=== PATIENT | male | born 1990 | race Caucasian/White ===

== ENCOUNTER 2018-05-17 07:22 | Emergency (ER) | payer BC ==
[2018-05-17] MEDS ORDERED: Ondansetron 4 MG/2 ML SDV IVPUSH ONE (07:23)
[2018-05-17] MEDS ORDERED: Sodium Chloride 0.9% 1,000 ML IV ONE (07:23)
--- NOTE | 2018-05-17 07:25 | EDM.PDOC ---
ED HPI GENERAL MEDICAL PROBLEM - General Chief Complaint: Respiratory Problem Stated Complaint: COUGH, NAUSEA, CHILLS THEN HOT, BODY ACHES Time Seen by Provider: 05/17/18 07:24 Source of Information: Reports: Patient - History of Present Illness INITIAL COMMENTS - FREE TEXT/NARRATIVE: HISTORY AND PHYSICAL: History of present illness: [Patient presents with cough and nausea dizziness general myalgias headache sinus pain and pressure increasing over the last week otherwise in no distress he did have a couple episodes of vomiting secondary to dizziness otherwise no chest pain shortness of breath bowel or urine symptoms ] Review of systems: As per history of present illness and below otherwise all systems reviewed and negative. Past medical history: As per history of present illness and as reviewed below otherwise noncontributory. Surgical history: As per history of present illness and as reviewed below otherwise noncontributory. Social history: No reported history of drug or alcohol abuse. Family history: As per history of present illness and as reviewed below otherwise noncontributory. Physical exam: HEENT: Atraumatic, normocephalic, pupils reactive, negative for conjunctival pallor or scleral icterus, mucous membranes moist, throat clear, neck supple, nontender, trachea midline. last tenderness supraorbital sinuses left greater than right bilateral ear effusion left is red and bulging no mastoid tenderness no pain with movement of the auricle Lungs: Clear to auscultation, breath sounds equal bilaterally, chest nontender. Heart: S1S2, regular, negative for clicks, rubs, or JVD. Abdomen: Soft, nondistended, nontender. Negative for masses or hepatosplenomegaly. Negative for costovertebral tenderness. Pelvis: Stable nontender. Genitourinary: Deferred. Rectal: Deferred. Extremities: Atraumatic, negative for cords or calf pain. Neurovascular unremarkable. Neuro: Awake, alert, oriented. Cranial nerves II through XII unremarkable. Cerebellum unremarkable. Motor and sensory unremarkable throughout. Exam nonfocal. Diagnostics: [Influenza/strep Chest 1 view] Therapeutics: [Zofran 4 mg ODT Rocephin 1 g IV Augmentin Zofran ] Impression: [ sinusitis] Definitive disposition and diagnosis as appropriate pending reevaluation and review of above. Headache Pain Score (Numeric/FACES): 6 - Related Data Allergies Allergy/AdvReac Type Severity Reaction Status Date / Time No Known Allergies Allergy Verified 05/17/18 07:32 Home Meds: Home Meds . [No Known Home Meds] 05/17/18 [History] ED ROS GENERAL - Review of Systems Review Of Systems: See Below ED EXAM, GENERAL - Physical Exam Exam: See Below Course - Vital Signs Last Recorded V/S: Last Vital Signs Temp 97.9 F 05/17/18 07:33 Pulse 81 05/17/18 07:33 Resp 16 05/17/18 07:33 BP 121/83 05/17/18 07:33 Pulse Ox 98 05/17/18 07:33 - Orders/Labs/Meds Orders: Active Orders 24 hr Category Date Time Status CULTURE STREP A CONFIRMATION [] Stat Lab 05/17/18 07:30 Results STREP SCRN A RAPID W CULT CONF [RM] Stat Lab 05/17/18 07:30 Results UA RFX LAURIE AND CULT IF INDIC [URIN] Stat Lab 05/17/18 07:23 Ordered cefTRIAXone [Rocephin] Med 05/17/18 08:14 Once 1 gm IM ONETIME ONE Meds: Medications Discontinued Medications Generic Name Dose Route Start Last Admin Trade Name Jake PRN Reason Stop Dose Admin Sodium Chloride 1,000 mls @ 999 mls/hr 05/17/18 07:23 05/17/18 08:10 Normal Saline IV 05/17/18 08:23 Not Given STAT ONE Ondansetron HCl 8 mg 05/17/18 07:23 05/17/18 08:10 Zofran IVPUSH 05/17/18 07:24 Not Given ONETIME ONE Ondansetron HCl 4 mg 05/17/18 08:06 05/17/18 08:10 Zofran Odt PO 05/17/18 08:07 4 mg ONETIME ONE Administration Departure - Departure Time of Disposition: 08:15 (\) Disposition: Home, Self-Care 01 Condition: Good Clinical Impression: Sinusitis - Discharge Information Referrals: PCP,None [Primary Care Provider] - Forms: ED Department Discharge Additional Instructions: The following information is given to patients seen in the emergency department who are being discharged to home. This information is to outline your options for follow-up care. We provide all patients seen in our emergency department with a follow-up referral. The need for follow-up, as well as the timing and circumstances, are variable depending upon the specifics of your emergency department visit. If you don't have a primary care physician on staff, we will provide you with a referral. We always advise you to contact your personal physician following an emergency department visit to inform them of the circumstance of the visit and for follow-up with them and/or the need for any referrals to a consulting specialist. The emergency department will also refer you to a specialist when appropriate. This referral assures that you have the opportunity for follow-up care with a specialist. All of these measure are taken in an effort to provide you with optimal care, which includes your follow-up. Under all circumstances we always encourage you to contact your private physician who remains a resource for coordinating your care. When calling for follow-up care, please make the office aware that this follow-up is from your recent emergency room visit. If for any reason you are refused follow-up, please contact the [facility] emergency department at and asked to speak to the emergency department charge nurse. - My Orders Last 24 Hours: My Active Orders 05/17/18 07:23 UA RFX LAURIE AND CULT IF INDIC [URIN] Stat 05/17/18 07:30 CULTURE STREP A CONFIRMATION [RM] Stat STREP SCRN A RAPID W CULT CONF [RM] Stat 05/17/18 08:14 cefTRIAXone [Rocephin] 1 gm IM ONETIME ONE - Assessment/Plan Last 24 Hours: My Active Orders 05/17/18 07:23 UA RFX LAURIE AND CULT IF INDIC [URIN] Stat 05/17/18 07:30 CULTURE STREP A CONFIRMATION [RM] Stat STREP SCRN A RAPID W CULT CONF [RM] Stat 05/17/18 08:14 cefTRIAXone [Rocephin] 1 gm IM ONETIME ONE
--- NOTE | 2018-05-17 07:58 | CR ---
INDICATION: Pain. Shortness of breath. TECHNIQUE: AP portable chest x-ray. FINDINGS: Lungs clear without infiltrate or consolidation. Mild thoracic scoliosis. Heart size normal. Mild gas distention stomach. Chest otherwise negative without acute disease. Dictated by Coy Boo MD @ May 17 2018 7:55AM Signed by Dr. Coy Boo @ May 17 2018 7:56AM
[2018-05-17] MEDS ORDERED: Ondansetron 4 MG Tab.DIS PO ONE (08:06)
[2018-05-17] MEDS ORDERED: cefTRIAXone 1 GM Vial IM ONE (08:14)
[2018-05-17] MEDS ORDERED: Lidocaine 1% 2 ML ONE (08:20)
== END 2018-05-17 08:45 | disposition home or self-care (01) ==
LOC: MW.ED 07:22
DX: J32.9 Chronic sinusitis, unspecified (principal)
CPT/HCPCS: 71045; 87081; 87804; 87880; 96372; 99283; A9270; J0696; J2001; 99284

== ENCOUNTER 2018-05-20 16:30 | Emergency (ER) | payer BC ==
[2018-05-20] MEDS ORDERED: Ondansetron 4 MG/2 ML SDV IVPUSH ONE (16:42)
[2018-05-20] MEDS ORDERED: Sodium Chloride 0.9% 1,000 ML IV ONE (16:42)
--- NOTE | 2018-05-20 16:44 | EDM.PDOC ---
<Link Ramos - Last Filed: 05/20/18 19:02> ED HPI GENERAL MEDICAL PROBLEM - General Chief Complaint: Gastrointestinal Problem Stated Complaint: DIARRHEA,CHILLS Time Seen by Provider: 05/20/18 16:43 Source of Information: Reports: Patient - History of Present Illness INITIAL COMMENTS - FREE TEXT/NARRATIVE: HISTORY AND PHYSICAL: History of present illness: [Patient presents with history of sinusitis on amoxicillin improvement from lab standpoint presents today with nausea vomiting for a couple of days of low abdominal pain and right lower quadrant Current f nausea vomiting loose stools Review of systems: As per history of present illness and below otherwise all systems reviewed and negative. Past medical history: As per history of present illness and as reviewed below otherwise noncontributory. Surgical history: As per history of present illness and as reviewed below otherwise noncontributory. Social history: No reported history of drug or alcohol abuse. Family history: As per history of present illness and as reviewed below otherwise noncontributory. Physical exam: HEENT: Atraumatic, normocephalic, pupils reactive, negative for conjunctival pallor or scleral icterus, mucous membranes moist, throat clear, neck supple, nontender, trachea midline. Lungs: Clear to auscultation, breath sounds equal bilaterally, chest nontender. Heart: S1S2, regular, negative for clicks, rubs, or JVD. Abdomen: Soft, nondistended, right lower quadrant pain with guarding on deep palpation no rebound tenderness. Negative for masses or hepatosplenomegaly. Negative for costovertebral tenderness. Pelvis: Stable nontender. Genitourinary: Deferred. Rectal: Deferred. Extremities: Atraumatic, negative for cords or calf pain. Neurovascular unremarkable. Neuro: Awake, alert, oriented. Cranial nerves II through XII unremarkable. Cerebellum unremarkable. Motor and sensory unremarkable throughout. Exam nonfocal. Diagnostics: [CBC CMP UA CT abdomen pelvis with contrast ] Therapeutics: [ normal saline Zofran Toradol ] Impression: [ abdominal pain Fever] Definitive disposition and diagnosis as appropriate pending reevaluation and review of above. Generalized Pain Score (Numeric/FACES): 8 - Related Data Allergies Allergy/AdvReac Type Severity Reaction Status Date / Time No Known Allergies Allergy Verified 05/20/18 16:39 Home Meds: Home Meds Non-Formulary Medication [NF Drug] 1 tab PO BID 05/20/18 [History] Ondansetron [Zofran] 1 tab PO ASDIRECTED PRN 05/20/18 [History] Past Medical History - Past Health History Medical/Surgical History: Denies Medical/Surgical History - Infectious Disease History Infectious Disease History: Reports: Chicken Pox Social & Family History - Family History Family Medical History: Noncontributory - Tobacco Use Smoking Status *Q: Never Smoker - Caffeine Use Caffeine Use: Reports: Coffee - Recreational Drug Use Recreational Drug Use: No Course - Vital Signs Last Recorded V/S: Last Vital Signs Temp 38.2 C H 05/20/18 16:36 Pulse 108 H 05/20/18 20:00 Resp 13 05/20/18 20:00 BP 112/57 L 05/20/18 20:00 Pulse Ox 96 05/20/18 20:00 - Orders/Labs/Meds Labs: Laboratory Tests 05/20/18 05/20/18 05/20/18 Range/Units 16:48 16:48 17:50 WBC 7.49 (4.0-11.0) K/uL RBC 5.22 (4.50-5.90) M/uL Hgb 16.4 (13.0-17.0) g/dL Hct 45.1 (38.0-50.0) % MCV 86.4 (80.0-98.0) fL MCH 31.4 (27.0-32.0) pg MCHC 36.4 (31.0-37.0) g/dL RDW Std Deviation 40.6 (28.0-62.0) fl RDW Coeff of Familia 13 (11.0-15.0) % Plt Count 232 (150-400) K/uL MPV 9.70 (7.40-12.00) fL Neut % (Auto) 80.2 H (48.0-80.0) % Lymph % (Auto) 10.9 L (16.0-40.0) % Pitt % (Auto) 6.7 (0.0-15.0) % Eos % (Auto) 1.9 (0.0-7.0) % Baso % (Auto) 0.3 (0.0-1.5) % Neut # (Auto) 6.0 H (1.4-5.7) K/uL Lymph # (Auto) 0.8 (0.6-2.4) K/uL Pitt # (Auto) 0.5 (0.0-0.8) K/uL Eos # (Auto) 0.1 (0.0-0.7) K/uL Baso # (Auto) 0.0 (0.0-0.1) K/uL Nucleated RBC % 0.0 /100WBC Nucleated RBCs # 0 K/uL Sodium 140 (136-148) mmol/L Potassium 4.5 (3.5-5.1) mmol/L Chloride 103 (98-107) mmol/L Carbon Dioxide 26.5 (21.0-32.0) mmol/L BUN 15 (7.0-18.0) mg/dL Creatinine 1.3 (0.8-1.3) mg/dL Est Cr Clr Drug Dosing 81.85 mL/min Estimated GFR (MDRD) > 60.0 ml/min Glucose 108 H (74-106) mg/dL Calcium 9.4 (8.5-10.1) mg/dL Total Bilirubin 0.4 (0.2-1.0) mg/dL AST 25 (15-37) IU/L ALT 42 (14-63) IU/L Alkaline Phosphatase 143 H (46-116) U/L Total Protein 8.4 H (6.4-8.2) g/dL Albumin 4.2 (3.4-5.0) g/dL Globulin 4.2 H (2.6-4.0) g/dL Albumin/Globulin Ratio 1.0 (0.9-1.6) Lipase 144 (73-393) U/L Urine Color YELLOW Urine Appearance CLEAR Urine pH 6.5 (5.0-8.0) Ur Specific [place] 1.010 (1.001-1.035) Urine Protein NEGATIVE (NEGATIVE) mg/dL Urine Glucose (UA) NEGATIVE (NEGATIVE) mg/dL Urine Ketones NEGATIVE (NEGATIVE) mg/dL Urine Occult Blood NEGATIVE (NEGATIVE) Urine Nitrite NEGATIVE (NEGATIVE) Urine Bilirubin NEGATIVE (NEGATIVE) Urine Urobilinogen 0.2 (<2.0) EU/dL Ur Leukocyte Esterase NEGATIVE (NEGATIVE) Meds: Medications Discontinued Medications Generic Name Dose Route Start Last Admin Trade Name Freq PRN Reason Stop Dose Admin Sodium Chloride 1,000 mls @ 999 mls/hr 05/20/18 16:42 05/20/18 16:57 Normal Saline IV 05/20/18 17:42 999 mls/hr STAT ONE Administration Iopamidol 90 ml 05/20/18 18:53 05/20/18 18:54 Isovue Multipack-370 (76%) IVPUSH 05/20/18 18:54 90 ml ONETIME STA Administration Ketorolac Tromethamine 30 mg 05/20/18 17:35 05/20/18 17:47 Toradol IVPUSH 05/20/18 17:36 30 mg ONETIME ONE Administration Ondansetron HCl 8 mg 05/20/18 16:42 05/20/18 16:57 Zofran IVPUSH 05/20/18 16:43 8 mg ONETIME ONE Administration Departure - Departure Disposition: Home, Self-Care 01 Clinical Impression: Abdominal pain, Gastroenteritis - Discharge Information Referrals: PCP,Unknown [Primary Care Provider] - Forms: ED Department Discharge Additional Instructions: The following information is given to patients seen in the emergency department who are being discharged to home. This information is to outline your options for follow-up care. We provide all patients seen in our emergency department with a follow-up referral. The need for follow-up, as well as the timing and circumstances, are variable depending upon the specifics of your emergency department visit. If you don't have a primary care physician on staff, we will provide you with a referral. We always advise you to contact your personal physician following an emergency department visit to inform them of the circumstance of the visit and for follow-up with them and/or the need for any referrals to a consulting specialist. The emergency department will also refer you to a specialist when appropriate. This referral assures that you have the opportunity for followup care with a specialist. All of these measure are taken in an effort to provide you with optimal care, which includes your followup. Under all circumstances we always encourage you to contact your private physician who remains a resource for coordinating your care. When calling for followup care, please make the office aware that this follow-up is from your recent emergency room visit. If for any reason you are refused follow-up, please contact the [facility] emergency department at and asked to speak to the emergency department charge nurse. Follow-up primary medical doctor as needed as discussed return as needed as discussed <Quan Costello - Last Filed: 05/20/18 20:17> ED ROS GENERAL - Review of Systems Review Of Systems: ROS reveals no pertinent complaints other than HPI. ED EXAM, GENERAL - Physical Exam Exam: See Below (See dictation) Course - Vital Signs Text/Narrative:: Emergency department course unremarkable CT was negative for appendicitis or other acute processes. Departure - Departure Time of Disposition: 20:16 Condition: Good
[2018-05-20] MEDS ORDERED: Ketorolac 30 MG/ML SDV IVPUSH ONE (17:35)
[2018-05-20 17:43] LABS: CHLORIDE,CL 103 mmol/L (98-107); SODIUM,NA 140 mmol/L (136-148)
--- NOTE | 2018-05-20 18:38 | CR ---
Indication: Abdominal pain. Technique: AP supine and upright views of the abdomen and pelvis were obtained. Comparison: None Findings: The bowel gas pattern is nonobstructive. No free air is identified. Only minimal amount of stool is identified. No pathologic calcifications are identified. Impression: Nonobstructive bowel gas pattern with no free air. Dictated by Kathie Gaitan MD @ May 20 2018 6:34PM Signed by Dr. Kathie Gaitan @ May 20 2018 6:35PM
[2018-05-20] MEDS ORDERED: Iopamidol 755 MG/ML 500 ML Multipack Bottle IVPUSH STA (18:53)
--- NOTE | 2018-05-20 19:24 | CT ---
INDICATION: Abdominal pain; diarrhea; chills. COMPARISON: Abdominal radiographs May 20, 2018; chest radiograph May 17, 2018. TECHNIQUE: CT abdomen and pelvis with intravenous contrast; coronal and sagittal reformats. FINDINGS: No abnormal intra pulmonary nodular densities through the lung bases. No evidence of pleural effusion. Normal size cardiac silhouette without any evidence of pericardial effusion. No focal hepatic or splenic pathology. No pancreatic pathology. Gallbladder is unremarkable. No adrenal pathology. No kidney stones or obstructive uropathy. No retroperitoneal lymphadenopathy. No evidence of abdominal or pelvic ascites. CT study of the pelvis is unremarkable. The appendix is unremarkable. No pneumoperitoneum or intestinal obstruction. Splenic vein, superior mesenteric vein and the portal vein are unremarkable. IMPRESSION: Negative CT abdomen and pelvis with intravenous contrast. Please note that all CT scans at this facility use dose modulation, iterative reconstruction, and/or weight-based dosing when appropriate to reduce radiation dose to as low as reasonably achievable. Dictated by Jorge A Samayoa MD @ May 20 2018 7:19PM Signed by Dr. Jorge A Samayoa @ May 20 2018 7:23PM
== END 2018-05-20 20:25 | disposition home or self-care (01) ==
LOC: MW.ED 16:30
DX: K52.9 Noninfective gastroenteritis and colitis, unspecified (principal); Z79.899 Other long term (current) drug therapy
CPT/HCPCS: 36415; 74019; 74177; 80053; 81003; 83690; 85025; 87804; 96361; 96374; 96375; 99284; J1885; J2405; J7040; Q9967

== ENCOUNTER 2020-04-14 13:48 | Emergency (ER) | payer BC, MEDICAID ==
--- NOTE | 2020-04-14 13:51 | EDM.PDOC ---
ED HPI GENERAL MEDICAL PROBLEM - General Chief Complaint: Laceration Stated Complaint: NAIL WENT IN HAND Time Seen by Provider: 04/14/20 13:49 Source of Information: Reports: Patient History Limitations: Reports: No Limitations - History of Present Illness INITIAL COMMENTS - FREE TEXT/NARRATIVE: 29-year-old male tetanus status not up-to-date presents for puncture wound to hand. Patient works as a warehouse general laborer and accidentally hit his hand up against an exposed nail. Bleeding stopped prior to arrival. No other injuries reported. L hand Pain Score (Numeric/FACES): 4 - Related Data Allergies Allergy/AdvReac Type Severity Reaction Status Date / Time No Known Allergies Allergy Verified 04/14/20 14:06 Home Meds: Home Meds Amoxicillin/Potassium Clav [Augmentin 875-125 Tablet] 1 each PO BID 7 Days #14 tablet 04/14/20 [Rx] Past Medical History - Past Health History Medical/Surgical History: Denies Medical/Surgical History - Infectious Disease History Infectious Disease History: Reports: Chicken Pox Social & Family History - Family History Family Medical History: No Pertinent Family History - Caffeine Use Caffeine Use: Reports: Coffee ED ROS GENERAL - Review of Systems Review Of Systems: Comprehensive ROS is negative, except as noted in HPI. ED EXAM, SKIN/RASH Exam: See Below Exam Limited By: No Limitations General Appearance: Alert, WD/WN, No Apparent Distress Throat/Mouth: Normal Voice, No Airway Compromise Head: Atraumatic, Normocephalic Respiratory/Chest: No Respiratory Distress, No Accessory Muscle Use Cardiovascular: Normal Peripheral Pulses Extremities: Other (Small puncture wound without active bleeding to left palmar hand, normal form setter/driver strength and range of motion of all digits, normal radial pulse) Neurological: Alert, Normal Gait Psychiatric: Normal Affect, Normal Mood Skin: Warm, Dry, Intact, Normal Color Course - Vital Signs Last Recorded V/S: Last Vital Signs Temp 97.3 F 04/14/20 13:56 Pulse 82 04/14/20 13:56 Resp 17 04/14/20 13:56 BP 118/71 04/14/20 13:56 Pulse Ox 97 04/14/20 13:56 - Orders/Labs/Meds Orders: Active Orders 24 hr Category Date Time Status Vaccines to be Administered [RC] PER UNIT ROUTINE Care 04/14/20 13:54 Active Octyl 2-Cyanoacrylate [Dermabond Mini] Med 04/14/20 14:30 Once 1 applic TOP ONETIME ONE Medication Orders Octyl Cyanoacrylate (Dermabond Mini) 1 applic TOP ONETIME ONE Stop: 04/14/20 14:31 Meds: Medications Generic Name Dose Route Start Last Admin Trade Name Freq PRN Reason Stop Dose Admin Octyl Cyanoacrylate 1 applic 04/14/20 14:30 Dermabond Mini TOP 04/14/20 14:31 ONETIME ONE Discontinued Medications Generic Name Dose Route Start Last Admin Trade Name Freq PRN Reason Stop Dose Admin Diphtheria/Tetanus/Acell Pertussis 0.5 ml 04/14/20 13:54 04/14/20 13:58 Boostrix IM 04/14/20 13:55 0.5 ml .ONCE ONE Administration - Re-Assessments/Exams Free Text/Narrative Re-Assessment/Exam: 04/14/20 14:33 We will Dermabond small puncture wound. Wound was cleaned out by nursing. No suspicion for foreign body given mechanism. Tetanus status addressed. Will send patient home with prophylactic Augmentin. Departure - Departure Time of Disposition: 14:31 Disposition: Home, Self-Care 01 Condition: Good Clinical Impression: Puncture wound - Discharge Information Prescriptions: Amoxicillin/Potassium Clav [Augmentin 875-125 Tablet] 1 each PO BID 7 Days #14 tablet Instructions: Puncture Wound Forms: ED Department Discharge Additional Instructions: The following information is given to patients seen in the emergency department who are being discharged to home. This information is to outline your options for follow-up care. We provide all patients seen in our emergency department with a follow-up referral. The need for follow-up, as well as the timing and circumstances, are variable depending upon the specifics of your emergency department visit. If you don't have a primary care physician on staff, we will provide you with a referral. We always advise you to contact your personal physician following an emergency department visit to inform them of the circumstance of the visit and for follow-up with them and/or the need for any referrals to a consulting specialist. The emergency department will also refer you to a specialist when appropriate. This referral assures that you have the opportunity for follow-up care with a specialist. All of these measure are taken in an effort to provide you with optimal care, which includes your follow-up. Under all circumstances we always encourage you to contact your private physician who remains a resource for coordinating your care. When calling for follow-up care, please make the office aware that this follow-up is from your recent emergency room visit. If for any reason you are refused follow-up, please contact the [facility] Emergency Department at and asked to speak to the emergency department charge nurse. Please follow up with your primary care physician. If you do not have a primary care physician, see below: [facility] [address], [place] [id number] [facility] [address] [place] [address] [facility] [address], [place] [address] Sepsis Event Note (ED) - Focused Exam Vital Signs: Vital Signs Temp Pulse Resp BP Pulse Ox 04/14/20 13:56 97.3 F 82 17 118/71 97 - My Orders Last 24 Hours: My Active Orders 04/14/20 13:54 Vaccines to be Administered [RC] PER UNIT ROUTINE 04/14/20 14:30 Octyl 2-Cyanoacrylate [Dermabond Mini] 1 applic TOP ONETIME ONE - Assessment/Plan Last 24 Hours: My Active Orders 04/14/20 13:54 Vaccines to be Administered [RC] PER UNIT ROUTINE 04/14/20 14:30 Octyl 2-Cyanoacrylate [Dermabond Mini] 1 applic TOP ONETIME ONE
[2020-04-14] MEDS ORDERED: Diphtheria,Pertussis(Acell),Tetanus Vaccine 0.5 ML Syringe IM ONE (13:54)
[2020-04-14] MEDS ORDERED: Octyl 2-Cyanoacrylate 1 APPLIC TUBE TOP ONE (14:30)
== END 2020-04-14 14:41 | disposition home or self-care (01) ==
LOC: MW.ED 13:48
DX: S61.432A Puncture wound without foreign body of left hand, initial encounter (principal); Z23 Encounter for immunization; W45.0XXA Nail entering through skin, initial encounter
CPT/HCPCS: 90471; 90715; 99283; A9270

== ENCOUNTER 2020-05-15 21:21 | Emergency (ER) | payer MEDICAID ==
--- NOTE | 2020-05-15 21:26 | EDM.PDOC ---
<Alma Ragsdale - Last Filed: 05/15/20 22:06> ED HPI GENERAL MEDICAL PROBLEM - General Chief Complaint: Gastrointestinal Problem Stated Complaint: VOMITING/DIARREA Time Seen by Provider: 05/15/20 21:22 Source of Information: Reports: Patient History Limitations: Reports: No Limitations - History of Present Illness INITIAL COMMENTS - FREE TEXT/NARRATIVE: HISTORY AND PHYSICAL: History of present illness: The patient is a 29-year-old male who presents to the urgency room with complaints of vomiting this evening and an episode of explosive diarrhea. He states that he has a sore throat, headache, lower back pain and abdominal pain. Up until a few hours ago he felt well. Last meal was at noon. He has a sick contact of his son, who has similar symptoms which started Friday. Patient denies any fever, change in vision, syncope or near syncope. Denies any chest pain, shortness of breath or cough. Denies any nausea, vomiting, diarrhea, constipation or dysuria. Has not noted any blood in urine or stool. Review of systems: As per history of present illness and below otherwise all systems reviewed and negative. Past medical history: As per history of present illness and as reviewed below otherwise noncontributory. Surgical history: As per history of present illness and as reviewed below otherwise noncontributory. Social history: See social history for further information Family history: As per history of present illness and as reviewed below otherwise noncontributory. Physical exam: General: Well developed and well nourished. Alert and orientated x 3. Nontoxic in appearance and in no acute distress. Vital signs are stable and have been reviewed by me. Nursing notes were reviewed. HEENT: Atraumatic, normocephalic, pupils equal and reactive bilaterally, negative for conjunctival pallor or scleral icterus, mucous membranes moist, TMs normal bilaterally, throat clear, neck supple, nontender, trachea midline. No drooling or trismus noted. No meningeal signs. No hot potato voice noted. Lungs: Clear to auscultation bilaterally. No wheezes, rales, or rhonchi. Chest nontender. Normal work of breathing, no accessory muscles used. Heart: S1S2, regular rate and rhythm without overt murmur, gallops, or rubs. No JVD. No peripheral edema Abdomen: Soft, nondistended, nontender. Normoactive bowel sounds. Negative for masses or costovertebral tenderness. Skin: Intact, warm, dry. No lesions or rashes noted. Hematologic: No petechiae or purpra. Mucosa appropriate color and normal nail bed color and refill. Extremities: Atraumatic, moves all extremities per self without difficulty or deficits, negative for cords or calf pain. Neurovascular unremarkable. Neuro: Awake, alert, oriented. Cranial nerves II through XII unremarkable. Cerebellum unremarkable. Motor and sensory unremarkable throughout. Exam nonfocal. Psychiatric: Mood and affect are appropriate. Normal thought process. Answering questions appropriately. Notes: *This patient was seen and evaluated during the 2019 SARS-CoV-2 novel coronavirus pandemic period. Community viral transmission is ongoing at time of this encounter and the emergency department is operating under pandemic response procedures. Best exam and findings with the patient and he is agreeable to blood work and a stress test. Give patient Zofran. Report given to Dr. Bauman, who will assume care. I have talked with the patient about today's findings, in addition to providing specific details for plan of care. Reassessment at the time of disposition demonstrates that the patient is in no acute distress. The patient is stable for discharge, counseling was provided and we discussed in great detail signs and symptoms that would prompt them to return to the Emergency Department. Medication, follow up and supportive care measures were reviewed and discussed. Voices understanding and is agreeable to plan of care. Denies any further questions or concerns at this time. Diagnostics: CBC, CMP, strep Therapeutics: Zofran, IV fluids Prescription: Impression: Plan: 1. You were evaluated today on an emergent basis. Your 2. You can alternate Tylenol and ibuprofen as needed for pain and fever management. 3. We encourage you to follow up with your primary care provider and/or recommended specialist in the next few days for re-evaluation and further care/management. 4. If your symptoms should worsen, new symptoms develop or any of the signs and symptoms we discussed should arise please return to the emergency room or call 911 (if needed). Definitive disposition and diagnosis as appropriate pending reevaluation and review of above. headache Pain Score (Numeric/FACES): 3 - Related Data Allergies Allergy/AdvReac Type Severity Reaction Status Date / Time No Known Allergies Allergy Verified 05/15/20 21:42 Home Meds: Home Meds Ondansetron [Zofran ODT] 4 mg PO Q6H PRN #12 tab.dis 05/16/20 [Rx] Past Medical History - Past Health History Medical/Surgical History: Denies Medical/Surgical History HEENT History: Reports: Impaired Vision, Other (See Below) Other HEENT History: wears glasses - Infectious Disease History Infectious Disease History: Reports: Chicken Pox - Past Surgical History HEENT Surgical History: Reports: None Social & Family History - Family History Family Medical History: No Pertinent Family History - Caffeine Use Caffeine Use: Reports: Coffee, Energy Drinks, Soda ED ROS GENERAL - Review of Systems Review Of Systems: Comprehensive ROS is negative, except as noted in HPI. ED EXAM, GI/ABD - Physical Exam Exam: See Below (See dictation) Departure - Departure Disposition: Home, Self-Care 01 Clinical Impression: Gastroenteritis, Dehydration - Discharge Information Instructions: Dehydration, Adult, [id number], Viral Gastroenteritis, Adult, [id number] Referrals: Araseli Elias MD [Primary Care Provider] - Forms: ED Department Discharge Additional Instructions: You have been seen and evaluated in the ER today secondary to signs and symptoms consistent with a gastroenteritis. Upon arrival to the ED, he did seem slightly dehydrated. He was given 1 L of normal saline to assist with hydration. All your blood tests have been within normal limits. Your strep screen was ne gative. Please continue to drink plenty of fluids and eat a bland diet. You will be given a prescription for Zofran to assist you with your symptoms. The following information is given to patients seen in the emergency department who are being discharged to home. This information is to outline your options for follow-up care. We provide all patients seen in our emergency department with a follow-up referral. The need for follow-up, as well as the timing and circumstances, are variable depending upon the specifics of your emergency department visit. If you don't have a primary care physician on staff, we will provide you with a referral. We always advise you to contact your personal physician following an emergency department visit to inform them of the circumstance of the visit and for follow-up with them and/or the need for any referrals to a consulting specialist. The emergency department will also refer you to a specialist when appropriate. This referral assures that you have the opportunity for follow-up care with a specialist. All of these measure are taken in an effort to provide you with optimal care, which includes your follow-up. Under all circumstances we always encourage you to contact your private physician who remains a resource for coordinating your care. When calling for follow-up care, please make the office aware that this follow-up is from your recent emergency room visit. If for any reason you are refused follow-up, please contact the [facility] Emergency Department at and asked to speak to the emergency department charge nurse. [facility] [address] [place] [id number] [address] <Zackary Bauman - Last Filed: 05/16/20 00:16> ED HPI GENERAL MEDICAL PROBLEM - History of Present Illness INITIAL COMMENTS - FREE TEXT/NARRATIVE: Patient was seen and evaluated by me. Patient's labs are all within normal li mits. Patient's strep screen was negative. 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 We will obtain a Covid test on the patient and if negative patient will be stable to discharged home. Patient has been tolerating p.o. solids and liquids here in the ED after Zofran. Patient has also been given 1 L of normal saline and reports that he feels much improved. Abd: Soft, nondistended, no rebound/guarding, no psoas or obturator signs, no tenderness at Mcberney's point, no Clarke's sign. Pt does not present with an exam that would be consistent with an acute surgical abdomen at this time, nontender to palpation. Reassessment at the time of disposition demonstrates that the patient is in no acute distress. The patient has remained stable throughout the entire ED visit and is without objective evidence for acute process requiring urgent intervention or hospitalization. The patient is stable for discharge, counseling is provided as documented above, discussed symptomatic treatment and specific conditions for return. I have spoken with the patient/caregiver and discussed todays findings, in addition to providing specific details for the plan of care. Questions are answered and there is agreement with the plan. Course - Vital Signs Last Recorded V/S: Last Vital Signs Temp 97.5 F 05/15/20 21:35 Pulse 93 05/16/20 00:11 Resp 18 05/15/20 21:35 BP 138/105 H 05/15/20 22:10 Pulse Ox 97 05/16/20 00:11 - Orders/Labs/Meds Orders: Active Orders 24 hr Category Date Time Status COVID-19/FLU A+B [MOLEC] Stat Lab 05/15/20 23:20 Received Sodium Chloride 0.9% [Saline Flush] Med 05/15/20 22:04 Active 10 ml FLUSH ASDIRECTED PRN Sodium Chloride 0.9% [Saline Flush] Med 05/15/20 22:04 Active 2.5 ml FLUSH ASDIRECTED PRN Saline Lock Insert [OM.PC] Stat Oth 05/15/20 22:04 Ordered Medication Orders Sodium Chloride (Sodium Chloride 0.9% 10 Ml Syringe) 10 ml FLUSH ASDIRECTED PRN PRN Reason: Keep Vein Open Last Admin: 05/15/20 22:24 Dose: 10 ml Documented by: SOCRATES Sodium Chloride (Sodium Chloride 0.9% 2.5 Ml Syringe) 2.5 ml FLUSH ASDIRECTED PRN PRN Reason: Keep Vein Open Last Admin: 05/15/20 22:24 Dose: 2.5 ml Documented by: SOCRATES Labs: Laboratory Tests 05/15/20 05/15/20 05/15/20 Range/Units 22:24 22:24 22:38 WBC 13.31 H (4.0-11.0) K/uL RBC 5.38 (4.50-5.90) M/uL Hgb 17.1 H (13.0-17.0) g/dL Hct 47.0 (38.0-50.0) % MCV 87.4 (80.0-98.0) fL MCH 31.8 (27.0-32.0) pg MCHC 36.4 (31.0-37.0) g/dL RDW Std Deviation 39.3 (28.0-62.0) fl RDW Coeff of Familia 12 (11.0-15.0) % Plt Count 207 (150-400) K/uL MPV 10.20 (7.40-12.00) fL Neut % (Auto) 90.4 H (48.0-80.0) % Lymph % (Auto) 5.3 L (16.0-40.0) % [place] % (Auto) 3.6 (0.0-15.0) % Eos % (Auto) 0.5 (0.0-7.0) % Baso % (Auto) 0.2 (0.0-1.5) % Neut # (Auto) 12.0 H (1.4-5.7) K/uL Lymph # (Auto) 0.7 (0.6-2.4) K/uL [place] # (Auto) 0.5 (0.0-0.8) K/uL Eos # (Auto) 0.1 (0.0-0.7) K/uL Baso # (Auto) 0.0 (0.0-0.1) K/uL Nucleated RBC % 0.0 /100WBC Nucleated RBCs # 0 K/uL Sodium 141 (136-148) mmol/L Potassium 3.9 (3.5-5.1) mmol/L Chloride 103 (98-107) mmol/L Carbon Dioxide 25.5 (21.0-32.0) mmol/L BUN 17 (7.0-18.0) mg/dL Creatinine 1.1 (0.8-1.3) mg/dL Est Cr Clr Drug Dosing 91.81 mL/min Estimated GFR (MDRD) > 60.0 ml/min Glucose 107 H (74-106) mg/dL Calcium 9.0 (8.5-10.1) mg/dL Total Bilirubin 1.0 (0.2-1.0) mg/dL AST 18 (15-37) IU/L ALT 34 (14-63) IU/L Alkaline Phosphatase 96 (46-116) U/L Total Protein 8.3 H (6.4-8.2) g/dL Albumin 4.4 (3.4-5.0) g/dL Globulin 3.9 (2.6-4.0) g/dL Albumin/Globulin Ratio 1.1 (0.9-1.6) Group A Strep (PCR) NOT DETECTED (NOT DETECT) Meds: Medications Generic Name Dose Route Start Last Admin Trade Name Jake PRN Reason Stop Dose Admin Sodium Chloride 10 ml 05/15/20 22:04 05/15/20 22:24 Sodium Chloride 0.9% 10 Ml Syringe FLUSH 10 ml ASDIRECTED PRN Administration Keep Vein Open Sodium Chloride 2.5 ml 05/15/20 22:04 05/15/20 22:24 Sodium Chloride 0.9% 2.5 Ml Syringe FLUSH 2.5 ml ASDIRECTED PRN Administration Keep Vein Open Discontinued Medications Generic Name Dose Route Start Last Admin Trade Name Jake PRN Reason Stop Dose Admin Sodium Chloride 1,000 mls @ 999 mls/hr 05/15/20 22:03 05/15/20 22:24 Normal Saline IV 05/15/20 23:03 999 mls/hr .Bolus ONE Administration Ondansetron HCl 4 mg 05/15/20 21:53 05/15/20 22:24 Ondansetron 4 Mg Tab PO 05/15/20 21:54 Not Given ONETIME ONE Ondansetron HCl 4 mg 05/15/20 22:17 05/15/20 22:23 Ondansetron 4 Mg/2 Ml Sdv IVPUSH 05/15/20 22:18 4 mg ONETIME ONE Administration Departure - Departure Time of Disposition: 00:14 Condition: Good Sepsis Event Note (ED) - Focused Exam Vital Signs: Vital Signs Temp Pulse Resp BP Pulse Ox 05/16/20 00:11 93 97 05/15/20 22:10 91 138/105 H 97 05/15/20 21:35 97.5 F 110 H 18 132/93 H 97 - My Orders Last 24 Hours: My Active Orders 05/15/20 23:20 COVID-19/FLU A+B [MOLEC] Stat - Assessment/Plan Last 24 Hours: My Active Orders 05/15/20 23:20 COVID-19/FLU A+B [MOLEC] Stat
[2020-05-15] MEDS ORDERED: Ondansetron 4 MG Tab PO ONE (21:53)
[2020-05-15] MEDS ORDERED: Sodium Chloride 0.9% 1,000 ML IV ONE (22:03)
[2020-05-15] MEDS ORDERED: Sodium Chloride 0.9% 10 ML Syringe FLUSH PRN (22:04)
[2020-05-15] MEDS ORDERED: Sodium Chloride 0.9% 2.5 ML Syringe FLUSH PRN (22:04)
[2020-05-15] MEDS ORDERED: Ondansetron 4 MG/2 ML SDV IVPUSH ONE (22:17)
[2020-05-15 22:50] LABS: BLOOD UREA NITROGEN,BUN 17 mg/dL (7.0-18.0); CARBON DIOXIDE,CO2 25.5 mmol/L (21.0-32.0); CHLORIDE,CL 103 mmol/L (98-107); GLUCOSE RANDOM 107 mg/dL (74-106); POTASSIUM,K 3.9 mmol/L (3.5-5.1); SODIUM,NA 141 mmol/L (136-148)
[2020-05-16 00:10] LABS: CORONAVIRUS COVID-19 NAA NEGATIVE (NEGATIVE); INFLUENZA A NAA NEGATIVE (NEGATIVE); INFLUENZA B NAA NEGATIVE (NEGATIVE)
== END 2020-05-16 00:35 | disposition home or self-care (01) ==
LOC: MW.ED 21:21
DX: K52.9 Noninfective gastroenteritis and colitis, unspecified (principal); E86.0 Dehydration; Z20.822 Contact with and (suspected) exposure to COVID-19
CPT/HCPCS: 0240U; 36415; 80053; 85025; 87651; 96374; 99284; J2405; J7030; 99283

== ENCOUNTER 2020-06-01 12:36 | Emergency (ER) | payer MEDICAID ==
--- NOTE | 2020-06-01 12:41 | EDM.PDOC ---
ED HPI GENERAL MEDICAL PROBLEM - General Chief Complaint: Upper Extremity Injury/Pain Stated Complaint: NAIL IN LFT THUMB Time Seen by Provider: 06/01/20 12:39 Source of Information: Reports: Patient History Limitations: Reports: No Limitations - History of Present Illness INITIAL COMMENTS - FREE TEXT/NARRATIVE: 29-year-old male no past medical history presents for nail and finger. Patient was using a nail gun and accidentally stuck a nail through his left thumb. Denies any other injuries. Tetanus vaccination is up-to-date. Left thumb Pain Score (Numeric/FACES): 2 - Related Data Allergies Allergy/AdvReac Type Severity Reaction Status Date / Time No Known Allergies Allergy Verified 06/01/20 12:50 Home Meds: Home Meds cephALEXin [Keflex] 500 mg PO Q8H 7 Days #21 cap 06/01/20 [Rx] Past Medical History - Past Health History Medical/Surgical History: Denies Medical/Surgical History HEENT History: Reports: Impaired Vision, Other (See Below) Other HEENT History: wears glasses Cardiovascular History: Reports: None Respiratory History: Reports: None Gastrointestinal History: Reports: None Genitourinary History: Reports: None Musculoskeletal History: Reports: None Neurological History: Reports: None Psychiatric History: Reports: None Endocrine/Metabolic History: Reports: None Insulin Pump Model and Credit Administration Officer: None Hematologic History: Reports: None Immunologic History: Reports: None Oncologic (Cancer) History: Reports: None Dermatologic History: Reports: None - Infectious Disease History Infectious Disease History: Reports: Chicken Pox - Past Surgical History Head Surgeries/Procedures: Reports: None HEENT Surgical History: Reports: None Cardiovascular Surgical History: Reports: None Social & Family History - Family History Family Medical History: No Pertinent Family History - Caffeine Use Caffeine Use: Reports: Coffee Review of Systems - Review of Systems Review Of Systems: Comprehensive ROS is negative, except as noted in HPI. ED EXAM, GENERAL - Physical Exam Exam: See Below Exam Limited By: No Limitations General Appearance: Alert, WD/WN, No Apparent Distress Ears: Hearing Grossly Normal Throat/Mouth: Normal Voice, No Airway Compromise Head: Atraumatic, Normocephalic Respiratory/Chest: No Respiratory Distress, Lungs Clear, Normal Breath Sounds, No Accessory Muscle Use Cardiovascular: Normal Peripheral Pulses, Regular Rate, Rhythm Extremities: Normal Inspection, Other (roughly 7cm nail through nailbed of L thumb through and through ) Neurological: Alert, Normal Cognition, Normal Gait Psychiatric: Normal Affect, Normal Mood Skin Exam: Warm, Dry, Intact, Normal Color ED TRAUMA EXTREMITY PROCEDURES - Additional/Other Procedure(s) Other (Free Text) Procedure(s): Patient presented with a nail through his left thumb. X-ray imaging did not show any fracture or bony involvement. After consultation with hand surgery, I did a digital block utilizing 1% lidocaine roughly 7 mL on the left thumb. After adequate analgesia was verified utilizing pliers the nail was removed from the finger. The wound was irrigated with a copious amount of saline using pressure. Bleeding was well controlled and blood loss was minimal. A repeat x- ray will be performed to check for any bony involvement. Course - Vital Signs Last Recorded V/S: Last Vital Signs Temp 97.6 F 06/01/20 12:50 Pulse 78 06/01/20 12:50 Resp 17 06/01/20 12:50 BP 136/79 06/01/20 12:50 Pulse Ox 98 06/01/20 12:50 - Orders/Labs/Meds Meds: Medications Discontinued Medications Generic Name Dose Route Start Last Admin Trade Name Jake PRN Reason Stop Dose Admin Lidocaine HCl 20 ml 06/01/20 13:34 06/01/20 13:41 Lidocaine 1% 20 Ml Mdv INJECT 06/01/20 13:35 Not Given ONETIME ONE Lidocaine HCl 20 ml 06/01/20 13:36 06/01/20 13:41 Lidocaine 1% 5 Ml Sdv INJECT 06/01/20 13:37 20 ml ONETIME ONE Administration - Re-Assessments/Exams Free Text/Narrative Re-Assessment/Exam: 06/01/20 13:33 X-ray imaging does not reveal definite fracture. Just nail protected obliquely over the base of the first distal phalanx on all the views. I spoke with Dr. Parra at [facility], hand surgeon, and he recommends digital block to the finger and pulling the nail out. He does not recommend suturing the open wound but does recommend antibiotics to go home on. He agrees to follow-up with the patient if necessary but notes that if there is no fracture patient is likely okay to follow-up with his primary care physician. 06/01/20 14:42 Small fracture in distal left phalanx of 1st digit. Will place in a finger splint and discharged with antibiotics and primary care physician follow-up. Departure - Departure Time of Disposition: 14:43 Disposition: Home, Self-Care 01 Condition: Good Clinical Impression: Foreign body hand Qualifiers: Encounter type: initial encounter Laterality: left Qualified Code(s): S60.552A - Superficial foreign body of left hand, initial encounter Phalanx, distal fracture of finger Qualifiers: Encounter type: initial encounter Finger: thumb Fracture type: closed Fracture alignment: nondisplaced Laterality: left Qualified Code(s): S62.525A - Nondisplaced fracture of distal phalanx of left thumb, initial encounter for closed fracture - Discharge Information Prescriptions: cephALEXin [Keflex] 500 mg PO Q8H 7 Days #21 cap Instructions: Hand or Foot Foreign Body, Adult, Finger Fracture, Adult Referrals: Araseli Elias MD [Primary Care Provider] - Forms: ED Department Discharge Additional Instructions: The following information is given to patients seen in the emergency department who are being discharged to home. This information is to outline your options for follow-up care. We provide all patients seen in our emergency department with a follow-up referral. The need for follow-up, as well as the timing and circumstances, are variable depending upon the specifics of your emergency department visit. If you don't have a primary care physician on staff, we will provide you with a referral. We always advise you to contact your personal physician following an emergency department visit to inform them of the circumstance of the visit and for follow-up with them and/or the need for any referrals to a consulting specialist. The emergency department will also refer you to a specialist when appropriate. This referral assures that you have the opportunity for follow-up care with a specialist. All of these measure are taken in an effort to provide you with optimal care, which includes your follow-up. Under all circumstances we always encourage you to contact your private physician who remains a resource for coordinating your care. When calling for follow-up care, please make the office aware that this follow-up is from your recent emergency room visit. If for any reason you are refused follow-up, please contact the [facility] Emergency Department at and asked to speak to the emergency department charge nurse. Please follow up with your primary care physician. If you do not have a primary care physician, see below: [facility] [address] [place] [id number] [facility] [address] [place] [address] [facility] [address], [place] [address] Sepsis Event Note (ED) - Focused Exam Vital Signs: Vital Signs Temp Pulse Resp BP Pulse Ox 06/01/20 12:50 97.6 F 78 17 136/79 98
--- NOTE | 2020-06-01 13:27 | CR ---
Indication: Nail through the thumb. Technique: Left hand 4 views. Comparison: None. Findings: There is a nail projected obliquely over the base of the 1st distal phalanx on all views. No definite fracture identified. Probable small benign bone island in the distal radius. Joint spaces are well preserved. No soft tissue gas. Impression: There is a nail projected obliquely over the base of the 1st distal phalanx on all views. No definite fracture identified. Dictated by Stacey Caballero MD @ Jun 01 2020 1:23PM Signed by Dr. Stacey Caballero @ Jun 01 2020 1:27PM
[2020-06-01] MEDS ORDERED: Lidocaine 1% 20 ML MDV INJECT ONE (13:34)
--- NOTE | 2020-06-01 14:41 | CR ---
Indication: Nail removal Comparison: Two-views left 1st digit June 01, 2020 Technique: AP, Lateral, and Oblique views left 1st digit were obtained Findings: There is a minimally displaced fracture of the base of the 1st phalanx status post removal of embedded radiopaque nail. The joint spaces are grossly preserved. There is moderate fusiform soft tissue swelling. Impression: Minimally displaced fracture at the base of the proximal 1st phalanx status post removal of a embedded radiopaque nail with associated soft tissue swelling. No evidence of residual radiopaque debris is appreciated. Dictated by Gelacio Ascencio MD @ Jun 01 2020 2:37PM Signed by Dr. Gelacio Ascencio @ Jun 01 2020 2:39PM
== END 2020-06-01 15:15 | disposition home or self-care (01) ==
LOC: MW.ED 12:36
DX: S62.525A Nondisplaced fracture of distal phalanx of left thumb, initial encounter for closed fracture (principal); W45.0XXA Nail entering through skin, initial encounter
CPT/HCPCS: 64450; 73140-26-FA; 73140-FA; 99283-25; 99284

== ENCOUNTER 2020-11-29 02:28 | Emergency (ER) | payer MEDICAID ==
[2020-11-29] MEDS ORDERED: Ketorolac 30 MG/ML SDV ONE ×2 (04:37)
[2020-11-29 07:08] LABS: BLOOD UREA NITROGEN,BUN 10 mg/dL (7.0-18.0); CARBON DIOXIDE,CO2 27.8 mmol/L (21.0-32.0); CHLORIDE,CL 100 mmol/L (98-107); GLUCOSE RANDOM 123 mg/dL (74-106); SODIUM,NA 138 mmol/L (136-148)
== END 2020-11-29 05:05 | disposition home or self-care (01) ==
LOC: MW.ED 02:28
DX: R51.9 Headache, unspecified (principal)
CPT/HCPCS: 36415; 80048; 85025; 96372; 99284; J1885

== ENCOUNTER 2021-02-22 10:48 | Emergency (ER) | payer MEDICAID ==
[2021-02-22] MEDS ORDERED: Sodium Chloride 0.9% 2.5 ML Syringe FLUSH PRN (11:58)
[2021-02-22] MEDS ORDERED: Sodium Chloride 0.9% 10 ML Syringe FLUSH PRN (11:58)
[2021-02-22] MEDS ORDERED: Ondansetron 4 MG/2 ML SDV IVPUSH ONE (11:58)
[2021-02-22] MEDS ORDERED: Ketorolac 30 MG/ML SDV IVPUSH ONE (11:58)
[2021-02-22] MEDS ORDERED: Sodium Chloride 0.9% 1,000 ML IV ONE (11:58)
--- NOTE | 2021-02-22 11:59 | EDM.PDOC ---
ED HPI GENERAL MEDICAL PROBLEM - General Chief Complaint: General Stated Complaint: NOT FEELING WELL,BACK PAIN Time Seen by Provider: 02/22/21 11:17 Source of Information: Reports: Patient History Limitations: Reports: No Limitations - History of Present Illness INITIAL COMMENTS - FREE TEXT/NARRATIVE: HISTORY AND PHYSICAL: History of present illness: The patient is a 30-year-old male who presents to the emergency department with complaints of body aches, cough, hard to breathe, earaches, headache, nausea, and diarrhea that started 02/18/2021. The patient states that his also has the same symptoms but her started approximately 2 days before his. The patient has not been vaccinated for COVID-19 and is unsure of any known exposure. The patient states that he has not been febrile. Patient denies any fever, chills, change in vision, syncope or near syncope. Denies any chest pain. Denies any abdominal pain, vomiting, constipation or dysuria. Has not noted any blood in urine or stool. In the emergency department the patient is dynamically stable with a blood pressure of 120/86 and a pulse of 88. He is in no respiratory distress as he has an SPO2 of 97% on room air and a respiration rate of 16. Review of systems: As per history of present illness and below otherwise all systems reviewed and negative. Past medical history: As per history of present illness and as reviewed below otherwise noncontributory. Surgical history: As per history of present illness and as reviewed below otherwise noncontributory. Social history: See social history for further information Family history: As per history of present illness and as reviewed below otherwise noncontributory. Physical exam: General: Well developed and well nourished. Alert and orientated x 3. Nontoxic in appearance and in no acute distress. Vital signs are stable and have been reviewed by me. Nursing notes were reviewed. HEENT: Atraumatic, normocephalic, pupils equal and reactive bilaterally, negative for conjunctival pallor or scleral icterus, mucous membranes moist, TMs normal bilaterally, throat clear, neck supple, nontender, trachea midline. No drooling or trismus noted. No meningeal signs. No hot potato voice noted. Lungs: Clear to auscultation bilaterally. No wheezes, rales, or rhonchi. Chest nontender. Normal work of breathing, no accessory muscles used. Heart: S1S2, regular rate and rhythm without overt murmur, gallops, or rubs. No JVD. No peripheral edema Abdomen: Soft, nondistended, nontender. Normoactive bowel sounds. Negative for masses or costovertebral tenderness. Skin: Intact, warm, dry. No lesions or rashes noted. Hematologic: No petechiae or purpra. Mucosa appropriate color and normal nail bed color and refill. Extremities: Atraumatic, moves all extremities per self without difficulty or deficits, negative for cords or calf pain. Neurovascular unremarkable. Neuro: Awake, alert, oriented. Cranial nerves II through XII unremarkable. Cerebellum unremarkable. Motor and sensory unremarkable throughout. Exam nonfocal. Psychiatric: Mood and affect are appropriate. Normal thought process. Answering questions appropriately. Notes: *This patient was seen and evaluated during the 2019 SARS-CoV-2 novel coronavirus pandemic period. Community viral transmission is ongoing at time of this encounter and the emergency department is operating under pandemic response procedures. As stated above the patient is a 30-year-old male who presents to the emergency department with multiple complaints of upper respiratory infection to include diarrhea and nausea. The patient is concerned about influenza and COVID-19. He is not vaccinated for COVID-19. He has no known exposure but states he did visit some relatives over the holidays. For today's purposes I will treat the patient's nausea with IV fluids and Zofran. I will order a COVID-19 work-up. The patient's influenza was negative. The chest x-ray IMPRESSION: No evidence of active pulmonary disease. The patient's Covid 19 swab was positive. The patient did not receive the IV fluids or Zofran. Upon telling the patient of his COVID-19 results and discussing the patient's condition he has chosen to receive oral Zofran ODT and be discharged. The patient feels like he has been drinking and will be able to get his nausea under control at home. Have given the patient detailed instructions on when to return to the emergency department and he is comfortable with this discharge plan. I have talked with the patient about today's findings, in addition to providing specific details for plan of care. Reassessment at the time of disposition demonstrates that the patient is in no acute distress. The patient is stable for discharge, counseling was provided and we discussed in great detail signs and symptoms that would prompt them to return to the Emergency Department. Medication, follow up and supportive care measures were reviewed and discussed. Voices understanding and is agreeable to plan of care. Denies any further questions or concerns at this time. Diagnostics: CBC, CMP, chest x-ray, COVID-19/flu swab Therapeutics: IV fluids, Zofran Impression: COVID-19 Plan: 1. You were evaluated today on an emergent basis. Your complaints of body aches, cough, earaches, nausea and diarrhea was evaluated and you were tested for COVID-19/influenza. Your COVID-19 was positive. You can obtain a portable oxygenation monitor and monitor your oxygenation. If it would drop below the 90 please return to the emergency department. As you had no underlying illnesses your disease appears to be minor you do not qualify for the monoclonal antibodies. Your chest x-ray showed no evidence of active pulmonary disease. 1a. Your COVID-19 screening is positive. That means you do have the coronavirus and you are considered contagious. Your vital signs and oxygen saturation are well enough that you were able to monitor your symptoms at home. Continue to monitor for trouble breathing, new confusion or inability to arouse, bluish lips or face or any of the other symptoms we discussed -if this occurs please return to the emergency room. 2. Please self quarantine until cleared by [facility] Department. Inform any persons that you have been in contact with since you started becoming symptomatic that you have tested positive; they should be made aware and take the appropriate steps as needed. 3. You can take NyQuil during the evening to help get a restful night sleep. May alternate Tylenol and ibuprofen as needed for pain and fever management. 4. The [facility] health department will be calling you and following up with you. The [place] COVID 19 Hotline phone number , They are open Friday - Friday 7am - 7pm. Follow up with your primary care provider for re-evaluation and re-testing after the 10 day quarantine and discuss when you should be seen. Definitive disposition and diagnosis as appropriate pending reevaluation and review of above. Back Pain Score (Numeric/FACES): 6 - Related Data Allergies Allergy/AdvReac Type Severity Reaction Status Date / Time No Known Allergies Allergy Verified 02/22/21 11:30 Home Meds: Home Meds Venlafaxine [Effexor] 02/22/21 [History] hydrOXYzine HCL [hydrOXYzine] 02/22/21 [History] traZODone 02/22/21 [History] Past Medical History - Past Health History Medical/Surgical History: Denies Medical/Surgical History HEENT History: Reports: Impaired Vision, Other (See Below) Other HEENT History: wears glasses Cardiovascular History: Reports: None Respiratory History: Reports: None Gastrointestinal History: Reports: None Genitourinary History: Reports: None Musculoskeletal History: Reports: None Neurological History: Reports: None Psychiatric History: Reports: None Endocrine/Metabolic History: Reports: None Insulin Pump Model and Student Success Coach: None Hematologic History: Reports: None Immunologic History: Reports: None Oncologic (Cancer) History: Reports: None Dermatologic History: Reports: None - Infectious Disease History Infectious Disease History: Reports: Chicken Pox - Past Surgical History Head Surgeries/Procedures: Reports: None HEENT Surgical History: Reports: None Cardiovascular Surgical History: Reports: None Social & Family History - Family History Family Medical History: No Pertinent Family History - Caffeine Use Caffeine Use: Reports: None ED ROS GENERAL - Review of Systems Review Of Systems: Comprehensive ROS is negative, except as noted in HPI. ED EXAM, GENERAL - Physical Exam Exam: See Below (See dictation) Course - Vital Signs Last Recorded V/S: Last Vital Signs Temp 97.9 F 02/22/21 11:31 Pulse 104 H 02/22/21 13:16 Resp 16 02/22/21 11:31 BP 125/89 02/22/21 13:16 Pulse Ox 98 02/22/21 13:16 - Orders/Labs/Meds Labs: Laboratory Tests 02/22/21 Range/Units 11:40 Influenza Type A RNA NEGATIVE (NEGATIVE) Influenza Type B RNA NEGATIVE (NEGATIVE) SARS-CoV-2 RNA ([place]) POSITIVE H (NEGATIVE) Meds: Medications Discontinued Medications Generic Name Dose Route Start Last Admin Trade Name Freq PRN Reason Stop Dose Admin Sodium Chloride 1,000 mls @ 999 mls/hr 02/22/21 11:58 Normal Saline IV 02/22/21 12:58 .BOLUS ONE Ketorolac Tromethamine 30 mg 02/22/21 11:58 Ketorolac 30 Mg/Ml Sdv IVPUSH 02/22/21 11:59 ONETIME ONE Ondansetron HCl 4 mg 02/22/21 11:58 Ondansetron 4 Mg/2 Ml Sdv IVPUSH 02/22/21 11:59 ONETIME ONE Ondansetron HCl 4 mg 02/22/21 12:55 02/22/21 13:13 Ondansetron 4 Mg Tab.Dis PO 02/22/21 12:56 4 mg ONETIME ONE Administration Sodium Chloride 10 ml 02/22/21 11:58 Sodium Chloride 0.9% 10 Ml Syringe FLUSH ASDIRECTED PRN Keep Vein Open Sodium Chloride 2.5 ml 02/22/21 11:58 Sodium Chloride 0.9% 2.5 Ml Syringe FLUSH ASDIRECTED PRN Keep Vein Open Departure - Departure Time of Disposition: 13:00 Disposition: Home, Self-Care 01 Condition: Good Clinical Impression: COVID-19 - Discharge Information *PRESCRIPTION DRUG MONITORING PROGRAM REVIEWED*: Not Applicable *COPY OF PRESCRIPTION DRUG MONITORING REPORT IN PATIENT [place]: Not Applicable Instructions: COVID-19 Frequently Asked Questions, COVID-19: Quarantine vs. Isolation - [facility] (02/10/2020), COVID-19: What to Do If You Are Sick- [facility] (05/10/2020) Referrals: Sun Rivas [employer] SPECIALIST [Primary Care Provider] - Forms: ED Department Discharge Additional Instructions: The following information is given to patients seen in the emergency department who are being discharged to home. This information is to outline your options for follow-up care. We provide all patients seen in our emergency department with a follow-up referral. The need for follow-up, as well as the timing and circumstances, are variable depending upon the specifics of your emergency department visit. If you don't have a primary care physician on staff, we will provide you with a referral. We always advise you to contact your personal physician following an emergency department visit to inform them of the circumstance of the visit and for follow-up with them and/or the need for any referrals to a consulting specialist. The emergency department will also refer you to a specialist when appropriate. This referral assures that you have the opportunity for follow-up care with a specialist. All of these measure are taken in an effort to provide you with optimal care, which includes your follow-up. Under all circumstances we always encourage you to contact your private physician who remains a resource for coordinating your care. When calling for follow-up care, please make the office aware that this follow-up is from your recent emergency room visit. If for any reason you are refused follow-up, please contact the [facility] Emergency Department at and asked to speak to the emergency department charge nurse. [facility] [address] [place] [address] [facility] [address] [place] [id number] Plan: 1. You were evaluated today on an emergent basis. Your complaints of body aches, cough, earaches, nausea and diarrhea was evaluated and you were tested for COVID-19/influenza. Your COVID-19 was positive. You can obtain a portable oxygenation monitor and monitor your oxygenation. If it would drop below the 90 please return to the emergency department. As you had no underlying illnesses your disease appears to be minor you do not qualify for the monoclonal antibodies. Your chest x-ray showed no evidence of active pulmonary disease. 1a. Your COVID-19 screening is positive. That means you do have the coronavirus and you are considered contagious. Your vital signs and oxygen saturation are well enough that you were able to monitor your symptoms at home. Continue to monitor for trouble breathing, new confusion or inability to arouse, bluish lips or face or any of the other symptoms we discussed -if this occurs please return to the emergency room. 2. Please self quarantine until cleared by [facility] Department. Inform any persons that you have been in contact with since you started becoming symptomatic that you have tested positive; they should be made aware and take the appropriate steps as needed. 3. You can take NyQuil during the evening to help get a restful night sleep. May alternate Tylenol and ibuprofen as needed for pain and fever management. 4. The [facility] department will be calling you and following up with you. The [place] COVID 19 Hot[place] phone number , They are open Friday - Friday 7am - 7pm. Follow up with your primary care provider for re-evaluation and re-testing after the 10 day quarantine and discuss when you should be seen. Sepsis Event Note (ED) - Evaluation Sepsis Screening Result: No Definite Risk
--- NOTE | 2021-02-22 12:25 | CR ---
INDICATION: Cough and dyspnea COMPARISON: May 17, 2018 TECHNIQUE: Single-view AP upright study FINDINGS: TUBES AND LINES: None. HEART AND MEDIASTINUM: The heart size is normal. The mediastinal contour appears normal for patient age. LUNGS AND PLEURAL SPACES: The lungs appear normal.The pleural spaces are unremarkable. OSSEOUS STRUCTURES: Age-appropriate appearance. No acute focal finding. IMPRESSION: No evidence of active pulmonary disease. Dictated by Blane Levine MD @ 02/22/2021 12:23:41 PM (Electronically Signed)
[2021-02-22 12:39] LABS: CORONAVIRUS COVID-19 NAA POSITIVE (NEGATIVE); INFLUENZA A NAA NEGATIVE (NEGATIVE); INFLUENZA B NAA NEGATIVE (NEGATIVE)
[2021-02-22] MEDS ORDERED: Ondansetron 4 MG Tab.DIS PO ONE (12:55)
== END 2021-02-22 13:17 | disposition home or self-care (01) ==
LOC: MW.ED 10:48
DX: U07.1 COVID-19 (principal)
CPT/HCPCS: 0240U; 71045; 99284; A9270

== ENCOUNTER 2021-03-25 22:26 | Emergency (ER) | payer MEDICAID | END 2021-03-25 23:30 | disposition home or self-care (01) | LOC: MW.ED 22:26 | DX: S61.212A Laceration without foreign body of right middle finger without damage to nail, initial encounter (principal); W26.8XXA Contact with other sharp object(s), not elsewhere classified, initial encounter | CPT/HCPCS: 12001; 99283-25 ==

== ENCOUNTER 2021-03-27 22:03 | Emergency (ER) | payer MEDICAID | END 2021-03-27 23:44 | disposition home or self-care (01) | LOC: MW.ED 22:03 | DX: S09.90XA Unspecified injury of head, initial encounter (principal); F80.1 Expressive language disorder; Z72.0 Tobacco use; W22.09XA Striking against other stationary object, initial encounter | CPT/HCPCS: 70450; 70450-26; 72125; 72125-26; 99283-25 ==

== ENCOUNTER 2022-03-13 16:51 | Emergency (ER) | payer MEDICAID | END 2022-03-13 18:40 | disposition left against medical advice (07) | LOC: MW.ED 16:51 | DX: Z53.21 Procedure and treatment not carried out due to patient leaving prior to being seen by health care provider (principal) ==

== ENCOUNTER 2022-09-03 19:08 | Emergency (ER) | payer MEDICAID | END 2022-09-03 21:05 | disposition home or self-care (01) | LOC: MW.ED 19:08 | DX: S63.502A Unspecified sprain of left wrist, initial encounter (principal); X58.XXXA Exposure to other specified factors, initial encounter | CPT/HCPCS: 73110-26-LT; 73110-LT; 99283 ==

== ENCOUNTER 2024-04-14 15:30 | Emergency (ER) | payer BC, MEDICAID ==
[2024-04-14] MEDS: Ketorolac 30 MG/ML SDV IM ONE (15:58)
== END 2024-04-14 18:09 | disposition home or self-care (01) ==
LOC: MW.ED 15:30
DX: M25.532 Pain in left wrist (principal); G89.29 Other chronic pain; Z87.828 Personal history of other (healed) physical injury and trauma
CPT/HCPCS: 73110; 73130; 96372; 96374; 99283; J1100; J1885